=== PATIENT | female | born 1985 | race Caucasian/White ===

== ENCOUNTER 2016-11-13 00:15 | Emergency (ER) | payer OTHER ==
[~2016-11-13] VITALS: Ht 170.2 cm; Wt 71.2 kg
[2016-11-13 00:25] VITALS: BP 132/81
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
--- NOTE | 2016-11-13 01:35 | NUR ---
TO ER BED 3
--- NOTE | 2016-11-13 01:37 | NUR ---
Patient being evaluated by physician at bedside.
[2016-11-13] MEDS ORDERED: LIDOCAINE 1% 500 MG/50 ML VIAL INJ ONE (01:50)
--- NOTE | 2016-11-13 02:14 | NUR ---
Patient noted to have existing wounds upon arrival to ER. Wound covered with dressing. Physician informed.
[2016-11-13 02:20] VITALS: BP 130/75
--- NOTE | 2016-11-13 02:20 | NUR ---
Patient discharged with v/s stable. Written and verbal after care instructions given and explained. Patient alert, oriented and verbalized understanding of instructions. Ambulatory with steady gait. All questions addressed prior to discharge. ID band removed. Patient advised to follow up with PMD. Rx of BACTRIM DS 800MG BID, MOTRIN 800MG QID given. Patient educated on indication of medication including possible reaction and side effects. Opportunity to ask questions provided and answered.
== END 2016-11-13 02:20 | disposition home or self-care (01) ==
LOC: MED 00:15
DX: L02.411 Cutaneous abscess of right axilla (principal); R03.0 Elevated blood-pressure reading, without diagnosis of hypertension
CPT/HCPCS: 10060; 99283; J2001

== ENCOUNTER 2016-11-15 16:20 | Emergency (ER) | payer OTHER ==
[~2016-11-15] VITALS: Ht 170.2 cm; Wt 81.2 kg
[2016-11-15 16:49] VITALS: BP 105/70
--- NOTE | 2016-11-15 16:53 | NUR ---
Patient ambulated to bed 6. RN evaluating patient at bedside.
[2016-11-15] MEDS ORDERED: IBUPROFEN 800 MG TAB PO ONE (17:15)
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
[2016-11-15 17:33] VITALS: BP 108/72
--- NOTE | 2016-11-15 17:33 | NUR ---
Patient discharged with v/s stable. Written and verbal after care instructions given and explained. Patient verbalized understanding. Ambulatory with steady gait. All questions addressed prior to discharge. Advised to follow up with PMD.
== END 2016-11-15 17:33 | disposition home or self-care (01) ==
LOC: MED 16:20
DX: Z48.00 Encounter for change or removal of nonsurgical wound dressing (principal)
CPT/HCPCS: 99282